=== PATIENT | female | born 1985 | race Two or more races ===

== ENCOUNTER 2017-11-29 09:47 | Emergency (ER) | payer MEDICAID ==
[~2017-11-29] VITALS: Ht 154.9 cm; Wt 66.7 kg
[2017-11-29 09:55] VITALS: Ht 154.9 cm; Wt 66.7 kg
[2017-11-29 10:49] LABS: BASOPHIL % 0.2 % (0-2); PLATELET COUNT 233 x10^3mcL (130-400)
[2017-11-29 10:50] LABS: microscopic required? YES; urine erythrocyte 3+ (NEGATIVE)
[2017-11-29 12:53] VITALS: BP 110/67
== END 2017-11-29 12:53 | disposition home or self-care (01) ==
LOC: ED 09:47
PROVIDERS: Emergency Medicine
DX: O20.0 Threatened abortion (principal); Z3A.09 9 weeks gestation of pregnancy
CPT/HCPCS: 36415